=== PATIENT | male | born 1990 | race Caucasian/White ===

== ENCOUNTER 2021-07-14 16:35 | Emergency (ER) | payer BC ==
[~2021-07-14] VITALS: Ht 167.6 cm; Wt 98.0 kg
[2021-07-14] MEDS ORDERED: CYCLOBENZAPRINE5 MG PO (17:19)
[2021-07-14] MEDS ORDERED: NAPROSYN500 MG PO (17:19)
== END 2021-07-14 17:52 | disposition home or self-care (01) ==
LOC: FSED 16:54
DX: R07.9 Chest pain, unspecified (principal); R05.9 Cough, unspecified
CPT/HCPCS: 71045; 80053; 81003; 85025; 93005; 99283